=== PATIENT | female | born 2000 | race Caucasian/White ===

== ENCOUNTER 2021-11-17 12:19 | Emergency (ER) | payer MEDICAID ==
[~2021-11-17] VITALS: Ht 162.6 cm; Wt 122.5 kg
--- NOTE | 2021-11-17 12:19 | NUR ---
PT [facility] 37 FROM HOME C/O VOMITING STARTED 2 HRS AGO. PT IS AAOX4, NOT IN RESPIRATORY DISTRESS, V/S STABLE, KEPT RESTED AND COMFORTABLE. WILL CONTINUE TO MONITOR.
[2021-11-17 12:27] VITALS: BP 148/100
--- NOTE | 2021-11-17 13:20 | NUR ---
CALLED TO ROOM IN NO RESPONSE.
--- NOTE | 2021-11-17 13:30 | NUR ---
PT CALLED TO TRIAGE ROOM FOR BLOOD DRAW. NO RESPONSE
[2021-11-17] MEDS: IV NS 0.9% 1,000 ML BAG IV ONE (13:50)
[2021-11-17] MEDS: ONDANSETRON HCL/PF 4 MG/2 ML VIAL IVP ONE (13:50)
--- NOTE | 2021-11-17 13:50 | NUR ---
CALLED TO ROOM IN NO RESPONSE.
--- NOTE | 2021-11-17 13:53 | NUR ---
Patient eloped from facility. ER MD notified.
== END 2021-11-17 13:53 | disposition left against medical advice (07) ==
LOC: ER 12:22
DX: Z53.21 Procedure and treatment not carried out due to patient leaving prior to being seen by health care provider (principal); R11.2 Nausea with vomiting, unspecified; F12.90 Cannabis use, unspecified, uncomplicated

== ENCOUNTER 2023-06-12 14:51 | Emergency (ER) | payer MEDICAID, OTHER ==
[~2023-06-12] VITALS: Ht 162.6 cm; Wt 99.8 kg
[2023-06-12] MEDS ORDERED: diphenhydrAMINE HCL 50 MG/ML VIAL ONE (15:28)
[2023-06-12] MEDS ORDERED: PROCHLORPERAZINE EDISYLATE 10 MG/2 ML VIAL ONE (15:29)
[2023-06-12] MEDS ORDERED: MORPHINE SULFATE INJ 2 MG/ML DISP.SYRIN IV ONE (15:30)
[2023-06-12] MEDS ORDERED: MORPHINE SULFATE INJ 4 MG/ML DISP.SYRIN ONE (15:30)
[2023-06-12] MEDS ORDERED: PROCHLORPERAZINE EDISYLATE 10 MG/2 ML VIAL IVP ONE (15:30)
[2023-06-12] MEDS ORDERED: IV NS 0.9% 1,000 ML BAG IV ONE (15:30)
[2023-06-12] MEDS ORDERED: diphenhydrAMINE HCL 50 MG/ML VIAL IV ONE (15:30)
[2023-06-12 15:51] LABS: BASOPHILS % (AUTO) 0.3 % (0.0-2.0); EOSINOPHILS # (AUTO) 0.1 K/uL (0.0-0.7); EOSINOPHILS % (AUTO) 0.6 % (0.0-6.0); HEMATOCRIT 40 % (33-45); HEMOGLOBIN 12.8 g/dL (11.5-14.8); LYMPHOCYTES # (AUTO) 5.7 K/uL (0.8-4.8); MEAN CORPUSCULAR HEMOGLOBIN 24 PG (26.0-33.0); MEAN CORPUSCULAR HGB CONC 32 g/dl (31.0-36.0); MEAN CORPUSCULAR VOLUME 75 fL (82-100); MONOCYTES # (AUTO) 0.8 K/uL (0.1-1.30); MONOCYTES % (AUTO) 5.3 % (2.0-12.0); NEUTROPHILS # (AUTO) 8.3 K/uL (1.8-8.9); NEUTROPHILS % (AUTO) 55.8 % (43.0-81.0); PLATELET COUNT (AUTO) 331 K/uL (150-450); RED BLOOD CELL COUNT(AUTO) 5.38 MIL/uL (4.0-5.2); RED CELL DISTRIBUTION WIDTH 16.3 % (11.5-15.0); WHITE BLOOD COUNT (AUTO) 14.9 K/uL (4.3-11.0)
[2023-06-12 16:10] LABS: APPEARANCE,URINE SLIGHTLY CLOUDY (CLEAR); BILIRUBIN,URINE NEGATIVE (NEGATIVE); BLOOD, URINE NEGATIVE Ery/uL (NEGATIVE); COLOR,URINE YELLOW (YELLOW); KETONES,URINE TRACE mg/dL (NEGATIVE); LEUKOCYTE ESTERASE ,URINE NEGATIVE (NEGATIVE); NITRITE, URINE NEGATIVE (NEGATIVE); PROTEIN,URINE TRACE mg/dl (NEGATIVE); UGLUCOSE NEGATIVE (NEGATIVE); UROBILINOGEN,URINE 0.2 EU/dL (0.2)
[2023-06-12 16:11] LABS: CALCIUM, SERUM 9.1 mg/dL (8.5-10.1); CREATININE 0.8 mg/dL (0.6-1.3); POTASSIUM 3.3 mmol/L (3.5-5.1)
[2023-06-12 16:12] LABS: ADD URINE CULTURE NO; BACTERIA,URINE None seen /HPF (None Seen); MUCUS,URINE Few /LPF (None Seen); RBC,URINE 0-2 /HPF (0-2); SQUAMOUS EPITHELIAL CELL,UR 0-2 /HPF (None Seen); WBC,URINE 0-2 /HPF (0-3)
[2023-06-12 16:16] LABS: ALBUMIN 3.3 g/dL (3.4-5.0); BILIRUBIN,DIRECT 0.1 mg/dL (0.0-0.2); BILIRUBIN,TOTAL 0.3 mg/dL (0.2-1.0); TOTAL PROTEIN, SERUM 7.7 g/dL (6.4-8.2)
[2023-06-12 16:16] LABS: PREGNANCY TEST URINE QUAL NEGATIVE (NEGATIVE)
[2023-06-12] MEDS ORDERED: POTASSIUM CHLORIDE 20 MEQ TAB.PRT.SR PO ONE ×2 (16:30→16:39)
[2023-06-12] MEDS ORDERED: Magnesium 1GM/D5W 100ML PREMIX 100 ML IV ONE ×2 (16:58→19:48)
[2023-06-12] MEDS ORDERED: HALOPERIDOL LACTATE INJ 5 MG/ML VIAL ONE (16:58)
[2023-06-12] MEDS ORDERED: HALOPERIDOL LACTATE INJ 5 MG/ML VIAL IVP ONE (17:00)
[2023-06-12] MEDS: Magnesium 1GM/D5W 100ML PREMIX 100 ML IV SCH ×2 (17:00→20:25)
[2023-06-12 17:32] LABS: ANISOCYTOSIS 1+; BAND % (MANUAL) 1 % (0.0-5.0); EOSINOPHILS % (MANUAL) 1 % (0-4); LYMPHOCYTES % (MANUAL) 32 % (16-48); MONOCYTES % (MANUAL) 5 % (0-11.0); NEUTROPHILS % (MANUAL) 61 (42-76); PLATELET ESTIMATE ADEQUATE
[2023-06-12 18:01] VITALS: TEMP 98.7
[2023-06-12] MEDS ORDERED: POTASSIUM CL. PREMIX PERIPHER. 50 ML ONE ×3 (18:17→19:34)
[2023-06-12] MEDS ORDERED: ONDA4TAB5 PO (18:23)
[2023-06-12] MEDS: POTASSIUM CL. PREMIX PERIPHER. 50 ML IV SCH ×2 (18:30→20:26)
[2023-06-12 21:13] VITALS: BP 132/78; O2SAT 98
== END 2023-06-12 21:19 | disposition home or self-care (01) ==
LOC: ER 15:26
DX: E87.6 Hypokalemia (principal); E83.42 Hypomagnesemia; R11.2 Nausea with vomiting, unspecified; F17.200 Nicotine dependence, unspecified, uncomplicated
CPT/HCPCS: 99285; 96365; 96375; 96366; 96361; 96368; 85025; 80048; 83690; 80076; 83735; 84703; 81001; 36415; 85007; J0780; J1200; J1630; J2270; J7030; J3480 ×3; J3475 ×2; A4223 ×2

== ENCOUNTER 2024-03-16 02:29 | Emergency (ER) | payer MEDICAID, OTHER ==
[~2024-03-16] VITALS: Ht 162.6 cm; Wt 108.9 kg
[2024-03-16 02:29] VITALS: TEMP 98.1
[~2024-03-16 02:29] MED LIST: ONDA4TAB5 PO
[2024-03-16] MEDS ORDERED: HALOPERIDOL LACTATE INJ 5 MG/ML VIAL ONE (02:39)
[2024-03-16] MEDS ORDERED: diphenhydrAMINE HCL 50 MG/ML VIAL ONE (02:39)
[2024-03-16] MEDS: HALOPERIDOL LACTATE INJ 5 MG/ML VIAL IM ONE (02:45)
[2024-03-16] MEDS: diphenhydrAMINE HCL 50 MG/ML VIAL IM ONE (02:45)
[2024-03-16 03:55] VITALS: BP 128/76; O2SAT 99
== END 2024-03-16 04:00 | disposition home or self-care (01) ==
LOC: ER 02:30
DX: R11.2 Nausea with vomiting, unspecified (principal); F17.200 Nicotine dependence, unspecified, uncomplicated; F19.10 Other psychoactive substance abuse, uncomplicated; Z91.018 Allergy to other foods
CPT/HCPCS: 99284; 96372 ×2; J1200; J1630